=== PATIENT | female | born 1995 | race Caucasian/White ===

== ENCOUNTER → 2016-03-05 | Outpatient (CLI) | payer BC ==
[2016-03-05 12:17] LABS: CH 30.2; CHCM 32.8; HCT 42.5 % (34.0-46.0); HDW 2.85; HGB 13.6 gm/dL (11.4-16.0); MCH 29.7 pg (25.0-35.0); MCHC 32.1 g/dL (31.0-37.0); MCV 92.7 fL (80.0-100.0); RBC 4.59 m/uL (3.80-5.40); RDW 13.2 % (11.5-15.5); WBC 6.8 k/uL (4.0-11.0)
[2016-03-05 12:50] LABS: ALT 41 U/L (9-52); AST 27 U/L (14-36); Alkaline Phosphatase 82 U/L (38-126); Anion Gap 11 mmol/L; Blood Urea Nitrogen 8 mg/dL (7-17); Calcium 9.6 mg/dL (8.4-10.2); Carbon Dioxide 28 mmol/L (22-30); Chloride 106 mmol/L (98-107); Glucose 83 mg/dL (74-99); Non-African American GFR(MDRD) >60 (>60 ml/min/1.73 sqM); Potassium 4.8 mmol/L (3.5-5.1); Sodium 145 mmol/L (137-145); Total Bilirubin 0.3 mg/dL (0.2-1.3); Total Protein 7.8 g/dL (6.3-8.2)
[2016-03-05 13:02] LABS: Erythrocyte Sedimentation Rate 36 mm/hr (0-20)
[2016-03-05 13:21] LABS: Hepatitis B Surface Ag Index 0.06
[2016-03-05 13:45] LABS: Hepatitis B Surface Antibody POSITIVE (Negative)
[2016-03-05 13:56] LABS: C Reactive Protein 7.7 mg/L (<10.0)
== END | disposition home or self-care (01) ==
LOC: LABWHC1 11:51
PROVIDERS: ATTEND Internal Medicine Gastroenterology
DX: K51.90 Ulcerative colitis, unspecified, without complications (principal)
CPT/HCPCS: 36415; 80053; 85027; 85652; 86140; 86480; 86704; 86706; 87340

== ENCOUNTER → 2016-05-13 | Outpatient (CLI) | payer BC ==
[2016-05-13 16:51] LABS: CH 30.3; CHCM 33.1; HCT 41.8 % (34.0-46.0); HDW 2.57; HGB 13.7 gm/dL (11.4-16.0); MCH 30.2 pg (25.0-35.0); MCHC 32.7 g/dL (31.0-37.0); MCV 92.2 fL (80.0-100.0); Mean Platelet Volume 7.3; RBC 4.53 m/uL (3.80-5.40); RDW 13.7 % (11.5-15.5); WBC 7.3 k/uL (4.0-11.0)
[2016-05-13 17:19] LABS: ALT 31 U/L (9-52); AST 25 U/L (14-36); Alkaline Phosphatase 78 U/L (38-126); Anion Gap 13 mmol/L; Blood Urea Nitrogen 9 mg/dL (7-17); Calcium 9.7 mg/dL (8.4-10.2); Carbon Dioxide 23 mmol/L (22-30); Chloride 107 mmol/L (98-107); Glucose 159 mg/dL (74-99); Non-African American GFR(MDRD) >60 (>60 ml/min/1.73 sqM); Potassium 4.1 mmol/L (3.5-5.1); Sodium 143 mmol/L (137-145); Total Bilirubin 0.4 mg/dL (0.2-1.3); Total Protein 8.2 g/dL (6.3-8.2)
[2016-05-13 17:51] LABS: Erythrocyte Sedimentation Rate 28 mm/hr (0-20)
== END | disposition home or self-care (01) ==
LOC: LABWHC1 16:23
PROVIDERS: ATTEND Internal Medicine Gastroenterology
DX: K51.90 Ulcerative colitis, unspecified, without complications (principal)
CPT/HCPCS: 36415; 80053; 85027; 85652; 86140

== ENCOUNTER 2017-04-22 10:31 | Day surgery (SDC) | payer BC ==
[2017-04-20 15:03] VITALS: BMI 19.3
[~2017-04-22 10:31] MED LIST: LACTATED RINGERS 1,000 ML IV SCH
[2017-04-22 11:32] VITALS: RESP 16; TEMP 98.7
[2017-04-22] MEDS ORDERED: PROPOFOL 10 MG/ML 20 ML VIAL IV ONE (12:14)
--- NOTE | 2017-04-22 12:31 | P.PCN ---
Date of Procedure: 04/22/17 Procedure(s) Performed: BRIEF HISTORY: Patient is a 21-year-old pleasant white female, scheduled for an elective colonoscopy as a part of evaluation of long-standing history of ulcerative colitis diagnosed at age 16. She has been initially maintained on Remicade infusions but she developed infusion reaction in 2015 and hence it was discontinued and she was subsequent started on Humira in March 2016. She had a flareup in March 2016 and was treated with steroids for 2 months duration. the last 4 months she is been having diarrhea with bubbles anywhere from 10-12 at age loose to watery in consistency but no blood or mucus in the stool. She says For colonoscopy to evaluate the severity of ulcerative colitis. PROCEDURE PERFORMED: Colonoscopy with multiple random biopsies. PREOPERATIVE DIAGNOSIS: History of ulcerative colitis now with chronic diarrhea for 4 months duration. IV sedation per Anesthesia. PROCEDURE: After informed consent was obtained, the patient, was brought into the endoscopy unit. IV sedation was administered by Anesthesia under continuous monitoring. Digital rectal examination was normal. Initially the Olympus CF- 160 flexible video colonoscope was then inserted in the rectum, gradually advanced into the cecum without any difficulty. Careful examination was performed as the scope was gradually being withdrawn. Ileocecal valve and the appendiceal orifice were visualized and appeared normal. Prep was excellent. Mucosa of the cecum, ascending colon, transverse colon, descending colon, sigmoid colon, and rectum appeared normal. Retroflexion was performed in the rectum and no lesions were seen. The patient tolerated the procedure well. IMPRESSION: Mild to moderate active colitis involving the entire colon to the rectum with mucosal erythema, friability, granularity and spontaneous oozing status post multiple biopsies RECOMMENDATIONS: Findings of this examination were discussed with the patient as well as her family. She was advised to follow with the biopsy results. In the meantime she will be started on prednisone 30 mg daily and was advised to increase the Humira to once every week. She'll be seen in the office in 2-3 weeks..
[2017-04-22 12:35] VITALS: PULSE 86
[2017-04-22 12:55] VITALS: BP 109/59
== END 2017-04-22 14:05 | disposition home or self-care (01) ==
LOC: ORWHC2ENDO 10:31
PROVIDERS: ATTEND Internal Medicine Gastroenterology
DX: K52.9 Noninfective gastroenteritis and colitis, unspecified (principal); Z79.899 Other long term (current) drug therapy; Z79.3 Long term (current) use of hormonal contraceptives
CPT/HCPCS: 88305; 84703; 45380; J2704

== ENCOUNTER → 2017-08-22 | Outpatient (CLI) | payer BC ==
[2017-08-22 13:52] LABS: Basophils # (A) 0.1 k/uL (0-0.2); Basophils % (A) 1 %; Eosinophils # (A) 0.1 k/uL (0-0.7); Eosinophils % (A) 2 %; HCT 44.2 % (34.0-46.0); HGB 14.3 gm/dL (11.4-16.0); Lymphocytes # (A) 3.4 k/uL (1.0-4.8); Lymphocytes % (A) 50 %; MCH 29.9 pg (25.0-35.0); MCHC 32.3 g/dL (31.0-37.0); MCV 92.7 fL (80.0-100.0); Mean Platelet Volume 6.7; Monocytes # (A) 0.3 k/uL (0-1.0); Monocytes % (A) 4 %; Neutrophils # (A) 2.8 k/uL (1.3-7.7); Neutrophils % (A) 41 %; Platelet Count 341 k/uL (150-450); RBC 4.77 m/uL (3.80-5.40); RDW 13.8 % (11.5-15.5); WBC 6.8 k/uL (3.8-10.6)
[2017-08-22 13:58] LABS: ALT 41 U/L (9-52); AST 31 U/L (14-36); Albumin 4.8 g/dL (3.5-5.0); Alkaline Phosphatase 91 U/L (38-126); Anion Gap 15 mmol/L; Blood Urea Nitrogen 9 mg/dL (7-17); C Reactive Protein <5.0 mg/L (<10.0); Calcium 9.7 mg/dL (8.4-10.2); Carbon Dioxide 23 mmol/L (22-30); Chloride 104 mmol/L (98-107); Glucose 90 mg/dL (74-99); Potassium 4.4 mmol/L (3.5-5.1); Sodium 142 mmol/L (137-145); Total Bilirubin 0.2 mg/dL (0.2-1.3); Total Protein 7.9 g/dL (6.3-8.2)
[2017-08-22 15:14] LABS: Erythrocyte Sedimentation Rate 8 mm/hr (0-20)
== END | disposition home or self-care (01) ==
LOC: LABWHC1 12:46
PROVIDERS: ATTEND Internal Medicine Gastroenterology
DX: K51.90 Ulcerative colitis, unspecified, without complications (principal)
CPT/HCPCS: 36415; 80053; 85025; 85652; 86140

== ENCOUNTER → 2017-10-14 | Outpatient (CLI) | payer BC ==
[2017-10-14 16:55] LABS: Basophils % (A) 1 %; Eosinophils # (A) 0.1 k/uL (0-0.7); Eosinophils % (A) 1 %; HCT 40.2 % (34.0-46.0); HGB 13.3 gm/dL (11.4-16.0); Lymphocytes # (A) 2.9 k/uL (1.0-4.8); Lymphocytes % (A) 38 %; MCV 90.8 fL (80.0-100.0); Mean Platelet Volume 6.6; Monocytes # (A) 0.5 k/uL (0-1.0); Monocytes % (A) 6 %; Neutrophils % (A) 53 %; Platelet Count 353 k/uL (150-450); RBC 4.42 m/uL (3.80-5.40); WBC 7.6 k/uL (3.8-10.6)
[2017-10-14 17:10] LABS: ALT 33 U/L (9-52); AST 26 U/L (14-36); Albumin 4.6 g/dL (3.5-5.0); Alkaline Phosphatase 68 U/L (38-126); Anion Gap 11 mmol/L; Blood Urea Nitrogen 10 mg/dL (7-17); C Reactive Protein <5.0 mg/L (<10.0); Calcium 9.3 mg/dL (8.4-10.2); Carbon Dioxide 22 mmol/L (22-30); Chloride 109 mmol/L (98-107); Glucose 115 mg/dL (74-99); Potassium 3.9 mmol/L (3.5-5.1); Sodium 142 mmol/L (137-145); Total Bilirubin 0.3 mg/dL (0.2-1.3); Total Protein 7.9 g/dL (6.3-8.2)
[2017-10-14 18:42] LABS: Erythrocyte Sedimentation Rate 13 mm/hr (0-20)
== END | disposition home or self-care (01) ==
LOC: LABWHC1 16:32
PROVIDERS: ATTEND Internal Medicine Gastroenterology
DX: K51.90 Ulcerative colitis, unspecified, without complications (principal)
CPT/HCPCS: 36415; 80053; 85025; 85652; 86140

== ENCOUNTER → 2018-06-16 | Outpatient (CLI) | payer BC ==
[2018-06-16 10:20] LABS: Basophils # (A) 0.1 k/uL (0-0.2); Basophils % (A) 1 %; Eosinophils # (A) 0.3 k/uL (0-0.7); Eosinophils % (A) 4 %; HCT 44.8 % (34.0-46.0); HGB 14.6 gm/dL (11.4-16.0); Lymphocytes # (A) 2.5 k/uL (1.0-4.8); Lymphocytes % (A) 37 %; MCH 29.7 pg (25.0-35.0); MCHC 32.6 g/dL (31.0-37.0); MCV 90.9 fL (80.0-100.0); Monocytes # (A) 0.4 k/uL (0-1.0); Monocytes % (A) 5 %; Neutrophils # (A) 3.4 k/uL (1.3-7.7); Neutrophils % (A) 51 %; Platelet Count 398 k/uL (150-450); RBC 4.93 m/uL (3.80-5.40); RDW 13.2 % (11.5-15.5); WBC 6.8 k/uL (3.8-10.6)
--- NOTE | 2018-06-16 11:14 | CT ---
EXAMINATION TYPE: CT brain w con DATE OF EXAM: 06/16/2018 COMPARISON: None INDICATION: Headache and dizziness x1 year. DLP: 796 mGycm, Automated exposure control for dose reduction was used. CONTRAST: 100 mL Isovue-300 CT of the brain is performed utilizing 3 mm thick sections through the posterior fossa and 3 mm thick sections through the remaining calvarium. Study is performed within 24 hours of arrival to the hosp [facility]. No abnormal hyperdensity is present to suggest an acute intracranial hemorrhage. No mass lesion is evident. No acute infarcts are evident. Ventricles and sulci are appropriate for the patient age. Paranasal sinuses and mastoid air cells within the [id number] are clear. No abnormal enhancement is evident. IMPRESSIONS: 1. Normal postcontrast CT Brain
[2018-06-16 11:18] LABS: ALT 53 U/L (9-52); AST 33 U/L (14-36); Albumin 4.3 g/dL (3.5-5.0); Alkaline Phosphatase 100 U/L (38-126); Anion Gap 9 mmol/L; Blood Urea Nitrogen 9 mg/dL (7-17); Calcium 9.9 mg/dL (8.4-10.2); Carbon Dioxide 25 mmol/L (22-30); Chloride 106 mmol/L (98-107); Glucose 94 mg/dL (74-99); Potassium 4.1 mmol/L (3.5-5.1); Sodium 140 mmol/L (137-145); Total Bilirubin 0.3 mg/dL (0.2-1.3); Total Protein 7.5 g/dL (6.3-8.2)
== END | disposition home or self-care (01) ==
LOC: RADCTMAIN 09:19
PROVIDERS: ATTEND Family Medicine
DX: G44.1 Vascular headache, not elsewhere classified (principal)
CPT/HCPCS: 80053; 82607; 84443; 85025; 70460; 36415; Q9967

== ENCOUNTER → 2019-01-19 | Outpatient (CLI) | payer BC ==
[2019-01-19 12:17] LABS: Basophils # (A) 0.1 k/uL (0-0.2); Basophils % (A) 1 %; Eosinophils # (A) 0.3 k/uL (0-0.7); Eosinophils % (A) 3 %; HCT 41.6 % (34.0-46.0); HGB 13.9 gm/dL (11.4-16.0); Lymphocytes # (A) 2.3 k/uL (1.0-4.8); Lymphocytes % (A) 25 %; MCHC 33.5 g/dL (31.0-37.0); MCV 92.5 fL (80.0-100.0); Mean Platelet Volume 5.6; Monocytes # (A) 0.3 k/uL (0-1.0); Monocytes % (A) 3 %; Neutrophils # (A) 6.2 k/uL (1.3-7.7); Neutrophils % (A) 67 %; Platelet Count 440 k/uL (150-450); RDW 12.9 % (11.5-15.5); WBC 9.3 k/uL (3.8-10.6)
[2019-01-19 13:35] LABS: Erythrocyte Sedimentation Rate 20 mm/hr (0-20)
[2019-01-19 19:43] LABS: African American GFR (CKD) 121.3 (60.0-200.0); Albumin 4.6 g/dL (3.80-4.90); Albumin/Globulin Ratio 1.92 (1.60-3.17); Anion Gap 7.6 mmol/L (4.00-12.00); BUN/Creat Ratio 11.25 Ratio (12.00-20.00); C Reactive Protein 0.4 mg/dL (0.0-0.8); Calcium 9.4 mg/dL (8.7-10.3); Carbon Dioxide 22.4 mmol/L (21.6-31.8); Globulin 2.4 g/dL (1.6-3.3); Non-African American GFR(CKD) 104.6 (60.0-200.0); Potassium 4.3 mmol/L (3.5-5.5); Total Bilirubin 0.4 mg/dL (0.3-1.2)
== END ==
LOC: LABWHC1 11:38
PROVIDERS: ATTEND Nurse Practitioner
DX: K51.00 Ulcerative (chronic) pancolitis without complications (principal)
CPT/HCPCS: 36415; 80053; 85025; 85652; 86140

== ENCOUNTER → 2019-04-21 | Outpatient (CLI) | payer BC | LOC: LABWHC1 09:59 | PROVIDERS: ATTEND Internal Medicine | DX: K51.00 Ulcerative (chronic) pancolitis without complications (principal) | CPT/HCPCS: 83993; 87324 ==

== ENCOUNTER → 2019-09-19 | Outpatient (CLI) | payer BC ==
[2019-09-19 14:16] LABS: ALT 27 U/L (4-34); AST 26 U/L (14-36); African American GFR (CKD) >90 (>60 ml/min/1.73 sqM); Albumin 4.7 g/dL (3.5-5.0); Albumin/Globulin Ratio 1.5; Alkaline Phosphatase 95 U/L (38-126); Anion Gap 13 mmol/L; Basophils # (A) 0.1 k/uL (0-0.2); Basophils % (A) 1 %; Blood Urea Nitrogen 11 mg/dL (7-17); C Reactive Protein 11.6 mg/L (<10.0); Calcium 9.7 mg/dL (8.4-10.2); Carbon Dioxide 21 mmol/L (22-30); Chloride 104 mmol/L (98-107); Eosinophils # (A) 0.1 k/uL (0-0.7); Eosinophils % (A) 2 %; Globulin 3.2 g/dL; Glucose 112 mg/dL (74-99); HGB 14.9 gm/dL (11.4-16.0); Lymphocytes # (A) 2.7 k/uL (1.0-4.8); Lymphocytes % (A) 30 %; MCH 31.1 pg (25.0-35.0); MCHC 32.5 g/dL (31.0-37.0); MCV 95.8 fL (80.0-100.0); Mean Platelet Volume 7.7; Monocytes # (A) 0.6 k/uL (0-1.0); Monocytes % (A) 6 %; Neutrophils # (A) 5.5 k/uL (1.3-7.7); Neutrophils % (A) 60 %; Non-African American GFR(CKD) >90 (>60 ml/min/1.73 sqM); Platelet Count 405 k/uL (150-450); Potassium 4.1 mmol/L (3.5-5.1); RDW 11.9 % (11.5-15.5); Sodium 138 mmol/L (137-145); Total Bilirubin 0.4 mg/dL (0.2-1.3); Total Protein 7.9 g/dL (6.3-8.2); WBC 9.2 k/uL (3.8-10.6)
[2019-09-19 15:28] LABS: Erythrocyte Sedimentation Rate 15 mm/hr (0-20)
== END | disposition home or self-care (01) ==
LOC: LABWHC1 12:40
PROVIDERS: ATTEND Internal Medicine
DX: K51.00 Ulcerative (chronic) pancolitis without complications (principal)
CPT/HCPCS: 36415; 80053; 83993; 85025; 85652; 86140; 87324

== ENCOUNTER → 2021-12-23 | Outpatient (CLI) | payer BC | END | disposition home or self-care (01) | LOC: LABWHC1 16:34 | PROVIDERS: ATTEND Obstetrics & Gynecology Obstetrics | DX: O20.0 Threatened abortion (principal); Z3A.00 Weeks of gestation of pregnancy not specified | CPT/HCPCS: 36415; 84144; 84702; 86850; 86900; 86901 ==

== ENCOUNTER → 2021-12-25 | Outpatient (CLI) | payer BC | END | disposition home or self-care (01) | LOC: LABWHC1 09:31 | PROVIDERS: ATTEND Obstetrics & Gynecology Obstetrics | DX: O20.0 Threatened abortion (principal) | CPT/HCPCS: 36415; 84702 ==

== ENCOUNTER → 2022-06-21 | Outpatient (CLI) | payer BC ==
[2022-06-21 21:41] LABS: HCT 35.2 % (37.2-46.3); HGB 11.5 g/dL (12.0-15.0); MCH 30.8 pg (27.0-32.0); MCHC 32.7 g/dL (32.0-37.0); MCV 94.4 fL (80.0-97.0); Mean Platelet Volume 9.9 fL (9.5-12.2); NRBC Per 100 WBC 0 /100 WBCS (0.0-0.0); Platelet Count 315 X 10*3/uL (140-440); RBC 3.73 X 10*6/uL (4.10-5.20); RDW 13.3 % (11.5-14.5); WBC 9.22 X 10*3/uL (4.50-10.00)
[2022-06-21 22:17] LABS: Erythrocyte Sedimentation Rate 24 mm/Hr (0-20)
[2022-06-21 23:36] LABS: ALT 11 U/L (8-44); AST 11 U/L (13-35); African American GFR (CKD) 149.1 (60.0-200.0); Albumin 3.5 g/dL (3.8-4.9); Albumin/Globulin Ratio 1.43 (1.60-3.17); Alkaline Phosphatase 105 U/L (41-126); BUN/Creat Ratio 6.72 Ratio (12.00-20.00); Blood Urea Nitrogen 3.8 mg/dL (9.0-27.0); C Reactive Protein <0.30 mg/dL (0.00-0.80); Calcium 8.8 mg/dL (8.7-10.3); Carbon Dioxide 22.5 mmol/L (20.0-27.5); Chloride 107 mmol/L (96-109); Globulin 2.4 g/dL (1.6-3.3); Glucose 96 mg/dL (70-110); Non-African American GFR(CKD) 128.6 (60.0-200.0); Potassium 3.6 mmol/L (3.5-5.5); Sodium 141 mmol/L (135-145); Total Bilirubin <0.15 mg/dL (0.30-1.20); Total Protein 5.9 g/dL (6.2-8.2)
== END | disposition home or self-care (01) ==
LOC: LABWHC1 13:25
PROVIDERS: ATTEND Nurse Practitioner Family
DX: K51.00 Ulcerative (chronic) pancolitis without complications (principal)
CPT/HCPCS: 36415; 80053; 85027; 85652; 86140

== ENCOUNTER 2022-08-16 22:18 | Inpatient (IN) | payer BC ==
[2022-08-16] MEDS ORDERED: OXYTOCIN 30 UNITS/500 ML NS 30 UNIT in SALINE 1 500ML.BAG IV SCH (23:45)
[2022-08-16] MEDS ORDERED: miSOPROStoL 200 MCG TAB PO PRN (23:54)
[2022-08-16] MEDS ORDERED: TRANEXAMIC 1,000 MG/100ML-NACL 1,000 MG in EMPTY BAG 1 BAG IV PRN (23:54)
[2022-08-16] MEDS ORDERED: OXYTOCIN 10 UNIT/ML 1 ML VIAL IM PRN (23:54)
[2022-08-16] MEDS ORDERED: CARBOPROST TROMETHAMINE 250 MCG/ML 1 ML AMP IM PRN (23:54)
[2022-08-16] MEDS ORDERED: CITRIC ACID-SODIUM CITRATE 15 ML CUP PO ONE (23:54)
[2022-08-16] MEDS ORDERED: METHYLERGONOVINE 0.2 MG/ML 1 ML AMP IM PRN (23:54)
[2022-08-16] MEDS ORDERED: LACTATED RINGERS 1,000 ML IV ONE (23:54)
[2022-08-17] MEDS: LACTATED RINGERS 1,000 ML IV SCH ×3 (00:03→20:49)
[2022-08-17 00:10] LABS: Glucose,Whole Blood 86 mg/dL (70-110)
--- NOTE | 2022-08-17 00:18 | P.HPOB ---
History of Present Illness H&P Date: 08/17/22 Chief Complaint: Leakage of fluid This is a 27 year old at 37 weeks and 5 days (with EDC of 09/02/22 by 7 week US) who presents to triage with leakage of fluid and is found to be spontaneously ruptured. The fetus is in breech presentation by bedside ultrasound, therefore the patient is admitted and the decision is made to proceed with section as the patient is having regular uterine contractions and is dilated to 3cm. The was complicated by diet-cont rolled gestational diabetes. The patient also has a past medical history of ulcerative colitis (diagnosed at age 17) for which she has not had any exacerbations during and has not required medications. Maternal serologies: blood type O positive, antibody negative, rubella immune, VDRL non-reactive, HBsAg negative, HIV negative, GBS unknown (result still pending). TDap administered on 07/28/22. Past Medical History Additional Past Medical History / Comment(s): ULCERATIVE COLITIS History of Any Multi-Drug Resistant Organisms: None Reported Past Surgical History: Hernia Repair Additional Past Surgical History / Comment(s): COLONOSCOPY Past Anesthesia/Blood Transfusion Reactions: No Reported Reaction Smoking Status: Never smoker - Past Family History Mother Family Medical History: No Reported History Medications and Allergies Home Medications Medication Instructions Recorded Confirmed Type Vit No.179/Iron/Folic 1 tab PO DAILY 08/16/22 08/16/22 History [ Tablet] Allergies Allergy/AdvReac Type Severity Reaction Status Date / Time No Known Allergies Allergy Verified 08/16/22 22:26 Exam Intake and Output 08/16/22 08/16/22 08/17/22 14:59 22:59 06:59 Other: Weight 68.039 kg Focused physical exam is performed. This is a healthy-appearing breathing through contractions. Cervix is 3cm dilated. Extremities non- edematous, non-tender. heart tones are Category I. Assessment and Plan Assessment: 27 year old at 37 weeks and 5 days presenting with SROM and labor Plan: Admit, primary section for breech presentation with 2g on Ancef and 500g of Azithromycin for surgical ppx. Time with Patient: Less than 30
[2022-08-17] MEDS ORDERED: AZITHROMYCIN 500 MG in SODIUM CHLORIDE 0.9% 250 ML IVPB ONE (00:30)
[2022-08-17 00:44] LABS: Basophils % (A) 0 %; Eosinophils # (A) 0.1 k/uL (0-0.7); Eosinophils % (A) 1 %; HCT 41.5 % (34.0-46.0); HGB 13.8 gm/dL (11.4-16.0); Lymphocytes % (A) 19 %; MCH 30.4 pg (25.0-35.0); MCHC 33.1 g/dL (31.0-37.0); MCV 91.7 fL (80.0-100.0); Mean Platelet Volume 9.4; Monocytes # (A) 0.8 k/uL (0-1.0); Monocytes % (A) 7 %; Neutrophils # (A) 7.6 k/uL (1.3-7.7); Neutrophils % (A) 72 %; Platelet Count 273 k/uL (150-450); RBC 4.52 m/uL (3.80-5.40); RDW 13.9 % (11.5-15.5); WBC 10.6 k/uL (3.8-10.6)
[2022-08-17] MEDS ORDERED: MORPHINE SULFATE (PF) 0.3 MG/0.3 ML SYR ONE (00:54)
[2022-08-17] MEDS ORDERED: ePHEDrine 50 MG/ML 1 ML VIAL ONE (00:54)
[2022-08-17] MEDS ORDERED: OXYTOCIN 30 UNITS/500 ML NS BAG IV ONE (00:54)
[2022-08-17] MEDS ORDERED: NALBUPHINE 10 MG/ML (10 ML MDV) ONE (00:54)
[2022-08-17] MEDS ORDERED: ONDANSETRON 4 MG/2 ML VIAL ONE (00:54)
[2022-08-17] MEDS ORDERED: SIMETHICONE 80 MG CHEWABLE PO PRN (01:38)
[2022-08-17] MEDS ORDERED: NALOXONE 0.4 MG/ML 1 ML VIAL IV PRN (01:38)
[2022-08-17] MEDS ORDERED: diphenhydrAMINE 50 MG CAP PO PRN (01:38)
[2022-08-17] MEDS ORDERED: ZOLPIDEM 5 MG TAB PO PRN (01:38)
[2022-08-17] MEDS ORDERED: METOCLOPRAMIDE 5 MG/ML 2 ML VIAL IVP PRN (01:38)
[2022-08-17] MEDS ORDERED: diphenhydrAMINE 25 MG CAP PO PRN (01:38)
[2022-08-17] MEDS ORDERED: ONDANSETRON 4 MG/2 ML VIAL IVP PRN (01:38)
[2022-08-17] MEDS ORDERED: diphenhydrAMINE 50 MG/ML 1 ML VIAL IVP PRN ×2 (01:38)
--- NOTE | 2022-08-17 01:38 | P.OP ---
Date of Procedure: 08/17/22 Preoperative Diagnosis: 1. Term IUP at 37 weeks 2. Judah breech presentation 3. Spontaneous rupture of membranes 4. Early labor Postoperative Diagnosis: Same Procedure(s) Performed: Primary lower transverse section Implants: None Anesthesia: spinal Surgeon: Ann Marie Hernandez Partner Manager #1: Ace Krueger Estimated Blood Loss (ml): 259 IV fluids (ml): 600 Urine output (ml): 200 (clear) Pathology: none sent Condition: stable Disposition: floor Operative Findings: This is a 27-year-old 1 para 0 at 37 weeks and 5 days who presented to labor and delivery with spontaneously ruptured membranes and in early labor. The fetus was noted to be breech on presentation. section was recommended for maternal and well-being. The risks of bleeding, i nfection, and damage to surrounding structures including bladder/bowel/ureters were discussed with the patient. The patient understands these risks and desires to proceed with section. Description of Procedure: The patient was taken to the operating room where spinal anesthesia was found to be adequate. [] were given for infection prophylaxis. She was prepared and draped in the dorsal supine position with a leftward tilt. A Pfannenstiel skin incision was made with the scalpel. The incision was carried down to the fascia with a bovie. The fascia was incised and extended laterally with Hernandez scissors. The superior aspect of the fascia was grasped with Alvina clamps. The underlying rectus muscle was dissected off sharply with Hernandez scissors. In a similar fashion, the inferior aspect of the fascia was elevated with Alvina clamps and the rectus muscle and pyramidalis were dissected off. Excellent hemostasis was achieved with the bovie. The rectus muscle was in the midline down to the level of the pubic symphysis. Pre-peritoneal fatty tissue was bluntly dissected to expose the peritoneum. The peritoneum was found to be free of adherent bowel and entered sharply with Hernandez scissors. The peritoneal incision was extended superiorly and inferiorly to the bladder reflection with good visualization of the bladder. The bladder blade was inserted and vesicouterine peritoneum was identified. Intraabdominal survey revealed scant, clear peritoneal fluid and the thinned-out lower uterine segment. The vesicouterine peritoneum was opened with scissors and the bladder flap was developed. The bladder blade was repositioned to keep the bladder out of the operative field. The lower uterine segment was incised with a scalpel. The amniotic sac was ruptured with an Allis clamp and clear fluid was noted. The uterine incision was extended bluntly with lateral and upward traction. The fetus was in judah breech position. The buttocks were palpated and delivered gradually through the hysterotomy. Fundal pressure was continued and both legs were extended. With gentle pressure the legs and body gradually delivered. Once the scapula could be seen the baby was gently rotated and both arms were delivered. Maintaining head flexion, the head was delivered without difficulty.The mouth and nose were suctioned with a bulb. The cord was clamped and cut. The was handed off to the pediatric team. IV oxytocin was initiated to facilitate uterine contractions. The placenta was delivered manually after avulsion of the umbilical cord. The uterus was then exteriorized and the inside of the uterus was gently wiped with a lap sponge to assure complete removal of placental membranes. The uterine incision was closed with a 0-Polysorb suture in a running locked fashion. A second imbricating layer was placed with 0-Polysorb. The ovaries and tubes were found to be normal. The uterus, tubes, and ovaries were then gently returned to the abdominal cavity. The blood clots and fluid were wiped out of the abdomen and pelvis with moist laparotomy sponges. The uterine incision was reinspected and excellent hemostasis was noted. The fascial layer was closed with a 0-Vicryl suture. The subcutaenous layer was reapproximated with 2-0 Plain Gut. The skin was closed with 4-0 Monocryl in a subcuticular fashion. The patient tolerated the procedure well. All the counts were correct times two. The patient was taken to the recovery room in a stable condition.
[2022-08-17] MEDS: KETOROLAC 15 MG/ML 1 ML VIAL IVP SCH ×4 (11:09→22:51)
[2022-08-17] MEDS: SENNOSIDES-DOCUSATE SODIUM 1 EACH TAB PO SCH ×2 (11:26→20:50)
[2022-08-17] MEDS ORDERED: LORATADINE 10 MG TAB PO PRN (13:00)
--- NOTE | 2022-08-17 13:04 | P.PNOBGPC ---
Subjective - Subjective Principal diagnosis: POD 0 LTCS--> breech Interval history: Patient is doing well, She states pain is well controlled. She is tolerating a regular diet, and denies nausea or vomitting. she notes minimal lochia. she denies concerns. She is breast feeding. Patient reports: Reports appetite normal, Reports voiding normally, Reports pain well controlled, Reports ambulating normally [place]: doing well, nursing well Objective - Vital Signs Latest vital signs: Vital Signs Temp Pulse Resp BP Pulse Ox 08/17/22 08:00 98.8 F 93 14 117/74 08/17/22 03:45 98.3 F 107 H 16 120/79 99 08/17/22 03:15 104 H 16 120/80 100 08/17/22 02:45 89 16 114/61 98 08/17/22 02:30 105 H 16 111/60 98 08/17/22 02:15 103 H 16 135/71 97 08/17/22 02:00 105 H 16 114/64 97 08/17/22 01:45 97.5 F L 116 H 16 115/61 97 08/16/22 23:44 98.6 F 113 H 16 130/80 97 08/16/22 22:26 98.6 F 113 H 16 130/80 Intake and Output 08/16/22 08/17/22 08/17/22 22:59 06:59 14:59 Output Total 565 800 Balance -565 -800 Output: Urine 800 Estimated Blood Loss 265 Output, Quantitative 300 Blood Loss Other: Voiding Method Indwelling Catheter Weight 68.039 kg 68.039 kg - Exam Extremities: Present: normal. Absent: edema Abdomen: Present: normal appearance, soft Incision: Present: normal, dry, intact Uterus: Present: normal, firm Assessment and Plan (1) Term Current Visit: Yes Status: Acute Code(s): Z34.90 - ENCNTR FOR SUPRVSN OF NORMAL , UNSP, UNSP TRIMESTER SNOMED Code(s): 57678721 (2) Breech presentation Current Visit: Yes Status: Acute Code(s): O32.1XX0 - MATERNAL CARE FOR BREECH PRESENTATION, UNSP SNOMED Code(s): 3296525 (3) S/P section Current Visit: Yes Status: Acute Code(s): Z98.891 - HISTORY OF UTERINE SCAR FROM PREVIOUS SURGERY SNOMED Code(s): 576041267 Plan: Patient is doing well post operatively. Plan to continue with routine post operative care, she does desire circumcision prior to discharge for her son.
[2022-08-17] MEDS: FAMOTIDINE 20 MG TAB PO SCH (14:06)
[2022-08-17] MEDS: ACETAMINOPHEN TAB 500 MG TAB PO PRN ×2 (14:07→20:36)
[2022-08-17] MEDS: ACETAMINOPHEN IV (For NPO) 1,000 MG in EMPTY BAG 1 BAG IVPB SCH ×2 (20:48→20:49)
[2022-08-17 21:25] VITALS: RESP 16
[2022-08-18] MEDS: KETOROLAC 15 MG/ML 1 ML VIAL IVP SCH (05:23)
[2022-08-18] MEDS: LACTATED RINGERS 1,000 ML IV SCH (05:23)
[2022-08-18 06:26] LABS: Basophils % (A) 0 %; Eosinophils # (A) 0.1 k/uL (0-0.7); Eosinophils % (A) 1 %; HGB 11.3 gm/dL (11.4-16.0); Lymphocytes # (A) 1.3 k/uL (1.0-4.8); Lymphocytes % (A) 11 %; MCH 30.1 pg (25.0-35.0); MCHC 32.4 g/dL (31.0-37.0); MCV 92.8 fL (80.0-100.0); Monocytes # (A) 0.8 k/uL (0-1.0); Monocytes % (A) 7 %; Neutrophils # (A) 8.8 k/uL (1.3-7.7); Neutrophils % (A) 79 %; Platelet Count 236 k/uL (150-450); RBC 3.77 m/uL (3.80-5.40); RDW 14.2 % (11.5-15.5); WBC 11.2 k/uL (3.8-10.6)
[2022-08-18] MEDS: IBUPROFEN 600 MG TAB PO SCH ×2 (06:36→13:14)
[2022-08-18 07:50] VITALS: BP 116/79; PULSE 88; TEMP 98.1
[2022-08-18] MEDS: SENNOSIDES-DOCUSATE SODIUM 1 EACH TAB PO SCH (08:32)
--- NOTE | 2022-08-18 09:19 | P.PN ---
Progress Note - Text Progress Note Date: 08/18/22 is a 27 -year-old female had a history of under spinal analgesia with Astramorph 300 g for postop pain. Today patient is comfortable sitting in her bed. Today patient rated her pain level 3 out of 10 in severity. Denied any fever, drowsiness, confusion. Denied any weakness, tingling sensation in her lower extremities. Denied any bowel or bladder problems. Moving all extremities without any difficulty. Able to walk without any difficulties. Vitals: Hemodynamically stable Continue oral pain medication as per primary team.
[2022-08-18] MEDS: ACETAMINOPHEN TAB 500 MG TAB PO PRN ×2 (09:30→16:58)
--- NOTE | 2022-08-18 11:53 | P.DS ---
Providers Date of admission: 08/16/22 23:23 Expected date of discharge: 08/18/22 Attending physician: Leti Restrepo Primary care physician: Stated None - Discharge Diagnosis(es) (1) Term Current Visit: Yes Status: Acute (2) Breech presentation Current Visit: Yes Status: Acute (3) S/P section Current Visit: Yes Status: Acute Hospital Course: This is a 27-year-old 1 now para 1 that presented to labor and delivery and 08/16 with complaints of spontaneous rupture of membranes. Patient had known breech presentation. Patient was breech upon presentation. Patient been receiving routine care with myself which is been essentially uncomplicated. Patient did have a diagnosis of gestational diabetes which has been well controlled with diet alone. Patient was admitted to labor and delivery and primary was performed without difficulty. Viable male infant was delivered at 0113, weight of 6 lbs. 15 oz., Apgars of 9 and 9 at one and 5 minutes respectively. Patient has done well postoperatively. On this postoperative day #1 she is ambulating and voiding without difficulty. She is tolerating a regular diet without nausea or vomiting. She states her pain is well-controlled. She notes her lochia to be minimal, she is breast-feeding without difficulty. She would like discharge later today. Given she delivered just after midnight and has been doing so well postoperatively routine discharge instructions were reviewed patient states comfortable with these instructions and wishes to be discharged later this evening. Patient Condition at Discharge: Good Plan - Discharge Summary New Discharge Prescriptions: No Action Vit No.179/Iron/Folic [ Tablet] 1 tab PO DAILY Discharge Medication List Vit No.179/Iron/Folic [ Tablet] 1 tab PO DAILY 08/16/22 [History] Follow up Appointment(s)/Referral(s): Leti Restrepo DO [Doctor of Osteopathic Medicine] - 2 Weeks Patient Instructions/Handouts: (DC), (GEN) Activity/Diet/Wound Care/Special Instructions: Discharge instructions are reviewed. bleeding percussions are reviewed. No tub baths or intercourse until 6 weeks . Patient is to call the office and make a routine postoperative visit for 2 weeks. Should she have any concerns prior to this appointment she is urged to call the office. Discharge Disposition: HOME SELF-CARE
[2022-08-18] MEDS: FAMOTIDINE 20 MG TAB PO SCH (13:14)
--- NOTE | 2022-08-19 19:16 | P.MSEPDOC ---
Presenting Problems - Arrival Data Date of Arrival on Unit: 08/16/22 Time of Arrival on Unit: 22:15 Mode of Transport: Wheelchair - Complaint OB-Reason for Admission/Chief Complaint: Rule Out SROM Comment: SROM@2145 clear fluid. Breech presentation Medical History - Information : 1 Para: 0 Term: 0 : 0 Abortions: Spontaneous or Elective: 0 Number of Living Children: 0 - Gestational Age Gestational Age by PATTI (wks/days): 37 Weeks and 5 Days - History Complications: GDM Review of Systems - Review of Systems Constitutional: No problems Breast: No problems ENT: No problems Cardiovascular: No problems Respiratory: No problems Gastrointestinal: No problems Genitourinary: No problems Musculoskeletal: No problems Neurological: No problems Skin: No problems Vital Signs - Temperature Temperature: 98.1 F Temperature Source: Oral - Pulse Right Sitting Pulse Rate: 88 Pulse Assessment Method: Automatic Cuff - Respirations Respiratory Rate: 16 - Blood Pressure Right Arm Sitting Blood Pressure: 116/79 Blood Pressure Mean: 91 Blood Pressure Source: Automatic Cuff Medical Screen Scoring - Cervical Exam Dilation (cm): 3 Effacement (%): 70 Station: -2 Membranes: Ruptured - Assessment - Baby A Baseline FHR: 125 Heart Rate - NICHD Category: Category I (Normal) NST: Reactive Physician Notification - Physician Notified Physician Notified Date: 08/17/22 Physician Notified Time: 22:40 Physician: Keerthi New Order Received: Yes Maternal Triage Index - Maternal Triage Index Presenting for scheduled procedure w/no complaint: No - Stat/Priority 1 Stat Priority 1: No - Urgent/Priority 2 Urgent Priority 2: Yes Provider Notified: Ann Marie Hernandez Provider Notified Time: 22:40 Criteria Met for Priority 2: SROM, Breech Disposition - Disposition OB Disposition: Admit, LDRP Suite Discharge Date: 08/18/22 Discharge Time: 17:10 I agree with the RN Medical Screening Exam: Yes Case reviewed; plan agreed upon as documented in EMR&OBIX.: Yes Diagnosis: RELATED CONDITIONS, UNSPECIFIED, THIRD TRIMESTER
== END 2022-08-18 17:10 | disposition home or self-care (01) | DRG 787 ==
LOC: FBPOP 22:18 → 4FBP 23:23
PROVIDERS: ADMIT Obstetrics & Gynecology; ATTEND Obstetrics & Gynecology Obstetrics
PROC: 10D00Z1 Extraction of Products of Conception, Low, Open Approach (ICD-10-PCS; principal; 2022-08-17 01:07)
DX: O24.420 Gestational diabetes mellitus in childbirth, diet controlled (principal); O42.92 Full-term premature rupture of membranes, unspecified as to length of time between rupture and onset of labor; K51.90 Ulcerative colitis, unspecified, without complications; O32.1XX0 Maternal care for breech presentation, not applicable or unspecified; Z37.0 Single live birth; O99.62 Diseases of the digestive system complicating childbirth; Z3A.37 37 weeks gestation of pregnancy; Z87.19 Personal history of other diseases of the digestive system
CPT/HCPCS: 59025; 84112; 85025; 86850; 86900; 86901; 99213

== ENCOUNTER 2024-09-11 08:03 | Inpatient (IN) | payer OTHER ==
[2024-09-11] MEDS ORDERED: LIDOCAINE 0.5% (PF) 5 MG/ML (50 ML SDV) SQ PRN (08:23)
[2024-09-11] MEDS ORDERED: CARBOPROST TROMETHAMINE 250 MCG/ML 1 ML AMP IM PRN (08:23)
[2024-09-11] MEDS ORDERED: OXYTOCIN 10 UNIT/ML 1 ML VIAL IM PRN (08:23)
[2024-09-11] MEDS ORDERED: METHYLERGONOVINE 0.2 MG/ML 1 ML AMP IM PRN (08:23)
[2024-09-11] MEDS ORDERED: TRANEXAMIC 1,000 MG/100ML-NACL 1,000 MG in EMPTY BAG 1 BAG IV PRN (08:23)
[2024-09-11] MEDS ORDERED: TERBUTALINE 1 MG/ML VIAL SQ PRN (08:23)
[2024-09-11] MEDS: LACTATED RINGERS 1,000 ML IV SCH (08:46)
[2024-09-11 08:55] LABS: Basophils # (A) 0.06 10*3/uL (0.00-0.10); Basophils % (A) 0.5 %; Eosinophils # (A) 0.13 10*3/uL (0.04-0.35); Eosinophils % (A) 1.1 %; HCT 41.3 % (37.2-46.3); HGB 13.6 g/dL (12.0-15.0); Lymphocytes # (A) 2.26 10*3/uL (0.90-5.00); Lymphocytes % (A) 18.7 %; MCH 29.6 pg (27.0-32.0); MCHC 32.9 g/dL (32.0-37.0); MCV 89.8 fL (80.0-97.0); Monocytes # (A) 0.66 10*3/uL (0.20-1.00); Monocytes % (A) 5.5 %; Neutrophils # (A) 8.87 10*3/uL (1.80-7.70); Neutrophils % (A) 73.5 %; Platelet Count 242 10*3/uL (140-440); RBC 4.60 10*6/uL (4.10-5.20); RDW 15.8 % (11.5-14.5); WBC 12.06 10*3/uL (4.50-10.00)
[2024-09-11] MEDS: AMPICILLIN 2,000 MG in SODIUM CHLORIDE 0.9% 100 ML IVPB STA (09:05)
[2024-09-11] MEDS ORDERED: SODIUM CHLORIDE 0.9% 250 ML BAG ONE (09:54)
[2024-09-11] MEDS ORDERED: ROPIVACAINE 5 MG/ML 30 ML VIAL ONE (09:54)
[2024-09-11] MEDS ORDERED: fentaNYL (PF) 50 MCG/ML 5 ML AMP ONE (09:54)
--- NOTE | 2024-09-11 12:24 | P.HPOB ---
History of Present Illness H&P Date: 09/11/24 Chief Complaint: IUP at 39-5/7 weeks, history of x 1 desires trial of labor 29-year-old G2, P1 at 39-5/7 weeks at presents to labor and delivery with complaints of regular painful contractions. Patient states she was uncomfortable through the night contractions became more painful around 6 AM. Patient denied loss of fluid at the time of admission. Patient has been receiving routine care which has been essentially uncomplicated. Patient does have a prior history of a section for breech presentation and desires trial of labor after . Patient was admitted and desired epidural, epidural was placed by anesthesia prior to my arrival. Spontaneous rupture of membranes occurred at 1038. Clear in nature On blood work this patient has a blood type of O+, rubella status immune, hepatitis B surface engine negative, HIV negative, RPR nonreactive, group beta strep culture positive. Review of Systems Constitutional: Denies chills, Denies fatigue, Denies fever Ears, nose, mouth and throat: Denies headache Cardiovascular: Reports leg edema Respiratory: Denies dyspnea Gastrointestinal: Denies constipation, Denies diarrhea, Denies nausea, Denies vomiting Genitourinary: Reports Past Medical History Additional Past Medical History / Comment(s): ULCERATIVE COLITIS History of Any Multi-Drug Resistant Organisms: None Reported Past Surgical History: Section, Hernia Repair Additional Past Surgical History / Comment(s): COLONOSCOPY Past Anesthesia/Blood Transfusion Reactions: No Reported Reaction Past Psychological History: No Psychological Hx Reported Smoking Status: Never smoker Past Alcohol Use History: None Reported Past Drug Use History: None Reported - Past Family History Mother Family Medical History: No Reported History Medications and Allergies Home Medications Medication Instructions Recorded Confirmed Type Vit No.179/Iron/Folic 1 tab PO DAILY 08/16/22 08/16/22 History [ Tablet] Allergies Allergy/AdvReac Type Severity Reaction Status Date / Time No Known Allergies Allergy Verified 09/11/24 08:10 Exam Osteopathic Statement: *. No significant issues noted on an osteopathic st ructural exam other than those noted in the History and Physical/Consult. Vital Signs Temp Pulse Resp BP Pulse Ox 09/11/24 08:22 98.3 F 111 H 16 125/90 97 Intake and Output 09/10/24 09/11/24 09/11/24 22:59 06:59 14:59 Other: Weight 68.946 kg Targeted physical exam is performed this date General Is well-nourished well- developed female comfortable with epidural, breathing appears nonlabored, abdomen is gravid, on cervical exam she is completely dilated, and pushing is commencing. heart tones are noted to be category 1 and she is anjum every 2 minutes Results Result Diagrams: 09/11/24 08:40 Abnormal Lab Results - Last 24 Hours (Table) 09/11/24 Range/Units 08:40 WBC 12.06 H (4.50-10.00) 10*3/uL Immature Gran # 0.08 H (0.00-0.04) 10*3/uL Neutrophils # 8.87 H (1.80-7.70) 10*3/uL Assessment and Plan (1) Desires (vaginal after ) trial Current Visit: Yes Status: Acute Code(s): O34.219 - MATERNAL CARE FOR UNSP TYPE SCAR FROM PREVIOUS DEL SNOMED Code(s): 229515839 (2) Positive GBS test Current Visit: Yes Status: Acute Code(s): B95.1 - STREPTOCOCCUS, GROUP B, CAUSING DISEASES CLASSD ELSWHR SNOMED Code(s): 033236112 (3) Term Current Visit: No Status: Acute Code(s): Z34.90 - ENCNTR FOR SUPRVSN OF NORMAL , UNSP, UNSP TRIMESTER SNOMED Code(s): 35582175 Plan: Admit to labor and delivery Epidural placed prior to my arrival per patient request Antibiotics for GBS prophylaxis Anticipate spontaneous vaginal delivery
[2024-09-11] MEDS: AMPICILLIN 1,000 MG in SODIUM CHLORIDE 0.9% 50 ML IVPB SCH (13:11)
[2024-09-11] MEDS: ROPIVACAINE 225 MG, fentaNYL (PF). 450 MCG in SODIUM CHLORIDE 0.9% 171 ML EPIDURAL ONE (13:14)
[2024-09-11] MEDS: OXYTOCIN 30 UNITS/500 ML NS 30 UNIT in SALINE 1 500ML.BAG IV SCH (13:34)
[2024-09-11] MEDS ORDERED: ZOLPIDEM 5 MG TAB PO PRN (13:52)
[2024-09-11] MEDS ORDERED: diphenhydrAMINE 50 MG/ML 1 ML VIAL IVP PRN ×2 (13:52)
[2024-09-11] MEDS ORDERED: HYDROCORTISONE 2.5% RECTAL CREAM 30 GM TUBE RECTAL PRN (13:52)
[2024-09-11] MEDS ORDERED: LANOLIN CREAM 1 GM TUBE TOPICAL PRN (13:52)
[2024-09-11] MEDS ORDERED: diphenhydrAMINE 25 MG CAP PO PRN (13:52)
[2024-09-11] MEDS ORDERED: BENZOCAINE/MENTHOL SPRAY 1 GM/SPRAY AEROSOL TOPICAL PRN (13:52)
[2024-09-11] MEDS ORDERED: SIMETHICONE 80 MG CHEWABLE PO PRN (13:52)
[2024-09-12] MEDS: ACETAMINOPHEN TAB 500 MG TAB PO SCH (00:19)
[2024-09-12] MEDS: IBUPROFEN 800 MG TAB PO SCH (00:22)
[2024-09-12] MEDS: SENNOSIDES-DOCUSATE SODIUM 1 EACH TAB PO SCH (00:24)
[2024-09-12 04:54] VITALS: TEMP 98.2
[2024-09-12 04:56] VITALS: RESP 16
--- NOTE | 2024-09-12 08:50 | P.PROBDLV ---
Vaginal Delivery Note - . Vaginal Delivery Note: Date of service 09/11/2024 Findings: Viable female infant delivered at 1330 29-year-old G2, P1 at 39-4/7 weeks presented in active labor to labor and delivery. Patient was admitted, spontaneous rupture of membranes was noted. Patient did become uncomfortable and request epidural. Epidural was placed by the anesthesia department. Patient made quick progress toward complete dilation, patient began pushing and had a normal spontaneous vaginal delivery of a viable female at 1330. Weight of 7-8 Apgars of 9,9 at 1 and 5 minutes respectively. A loose nuchal cord was noted at the time of delivery and delivered through, after 2-minute delay the umbilic al cord was doubly clamped and cut. Placenta was delivered spontaneously intact with a three-vessel cord being noted. Uterus was noted to be firm and below the umbilicus. On inspection the patient's vaginal vault bilateral labial lacerations were appreciated. These were injected with lidocaine and repaired with 3-0 Rapide in the usual fashion. Hemostasis was noted after repair. All counts were noted to correct x 2 at the end of the delivery. Patient and tolerated delivery well and are resting comfortably.
--- NOTE | 2024-09-12 08:50 | P.DS ---
Providers Date of admission: 09/11/24 08:18 Expected date of discharge: 09/12/24 Attending physician: Leti Restrepo Primary care physician: Stated None - Discharge Diagnosis(es) (1) Desires (vaginal after ) trial Current Visit: Yes Status: Acute (2) Positive GBS test Current Visit: Yes Status: Acute (3) Term Current Visit: No Status: Acute (4) (vaginal after ) Current Visit: Yes Status: Acute Hospital Course: This is a 29-year-old 2 now para 2 that presented to labor and delivery on 09/11 at 39-5/7 weeks in active labor. Patient has a prior history of a section for breech presentation and desired trial of labor after . Patient was admitted and antibiotics were begun for GBS positive status. Patient did request epidural which was placed without difficulty by the anesthesia department. Patient had noted spontaneous rupture of membranes at 1038 clear in nature. Patient made good progress toward complete light dilation. Once completely dilated patient began pushing and had a normal spontaneous vaginal delivery of a viable female at 1330, a weight of 7 pounds 8 ounces, Apgars of 9 and 9 at 1 and 5 minutes respectively. Patient did sustain bilateral labial lacerations during delivery these were injected with lidocaine and repaired with 3-0 Rapide in the usual fashion. Hemostasis was noted after closure. Patient's course has been uneventful. On this day #1 she is ambulating and voiding without difficulty. She is tolerating a regular diet without nausea or vomiting. She states her pain is well-controlled. She denies concerns. She would like discharge home in 24 hours. Patient Condition at Discharge: Good Plan - Discharge Summary Discharge Rx Participant: No New Discharge Prescriptions: No Action Vit No.179/Iron/Folic [ Tablet] 1 tab PO DAILY Discharge Medication List Vit No.179/Iron/Folic [ Tablet] 1 tab PO DAILY 08/16/22 [History] Follow up Appointment(s)/Referral(s): Leti Restrepo DO [Doctor of Osteopathic Medicine] - 6 Weeks Patient Instructions/Handouts: Vaginal Delivery (GEN), Vaginal Delivery (DC) Activity/Diet/Wound Care/Special Instructions: No tub baths or intercourse until 6 weeks . [id number] ibuprofen 6 or milligrams or 3 tablets every 6 hours as needed for pain. Routine check in 6 weeks. Should she have concerns prior to this appointment she is urged to call the office to be seen prior Discharge Disposition: HOME SELF-CARE
[2024-09-12 08:57] VITALS: BP 114/76; PULSE 99
== END 2024-09-12 15:10 | disposition home or self-care (01) | DRG 560 ==
LOC: FBPOP 08:03 → 4FBP 08:18
PROVIDERS: ADMIT Obstetrics & Gynecology Obstetrics; ATTEND Obstetrics & Gynecology Obstetrics
PROC: 10E0XZZ Delivery of Products of Conception, External Approach (ICD-10-PCS; principal; 2024-09-11)
PROC: 0UQMXZZ Repair Vulva, External Approach (ICD-10-PCS; principal; 2024-09-11)
DX: O34.219 Maternal care for unspecified type scar from previous cesarean delivery (principal); O70.0 First degree perineal laceration during delivery; O99.824 Streptococcus B carrier state complicating childbirth; O69.81X0 Labor and delivery complicated by cord around neck, without compression, not applicable or unspecified; O99.62 Diseases of the digestive system complicating childbirth; K51.90 Ulcerative colitis, unspecified, without complications; Z3A.39 39 weeks gestation of pregnancy; Z37.0 Single live birth
CPT/HCPCS: 85025; 86850; 86900; 86901